=== PATIENT | female | born 1965 | race Caucasian/White ===

== ENCOUNTER → 2017-03-20 | Day surgery (SDC) | payer OTHER ==
[2017-03-14 13:49] VITALS: BMI 54.0
[~2017-03-20] VITALS: Ht 162.6 cm; Wt 142.3 kg
[~2017-03-20] MED LIST: LIDOCAINE HCL 2% 2 ML VIAL (20MG/ML) ONE; NAPR500T3 PO; PROPOFOL IV EMULSION 10 MG/ML 20 ML VIAL IV ONE
[2017-03-20 08:31] VITALS: Ht 162.6 cm; Wt 142.3 kg
--- NOTE | 2017-03-20 09:46 | Endo History and Physical ---
History & Physical Date of Service: Mar 20, 2017. Chief Complaint: SCREENING Referring Physician: ALEXANDRIA FIELD History of Present Illness Surveillance colon polyps Past Surgical History Hx Cardiac Surgery: No Hx Internal Defibrillator: No Hx Pacemaker: No Hx Abdominal Surgery: Yes (TUBAL LIGATION) Hx of Implantable Prosthesis: No Hx Post-Op Nausea and Vomiting: No Hx Cancer Surgery: No Hx Thoracic Surgery: No Hx Orthopedic: Yes (LT/RT CTR) Hx Urinary Tract Surgery: No Family History Colon CA Social History Smoking Status: Never Smoker Hx Substance Use: No Hx Alcohol Use: No Allergies Coded Allergies: Aspirin (Verified Allergy, Severe, EDEMA FACE/LIPS/TONGUE; HIVES, 03/20/17 ) Flu Virus Vaccine (Verified Allergy, Unknown, DIARRHEA AND FEVER, 03/20/17 ) HOSPITALIZED AFTER GIVEN FLU SHOT Diphenhydramine (Verified Adverse Reaction, Unknown, HARD TIME AWAKENING WHEN MEDICATION IS TAKEN, 03/20/17) Current Medications Reported Home Medications Medications Dose Route/Sig Max Daily Dose Days Date Category Naproxen 500 Mg Tab 1 Tab PO BID PRN 03/14/17 Reported Vital Signs Weight (Kilograms): 142.27 Height (Feet): 5 Height (Inches): 4 Date Time Temp Pulse Resp B/P (MAP) Pulse Ox O2 Delivery O2 Flow Rate FiO2 03/20/17 08:43 36.2 69 20 152/87 (108) 96 Room Air Physical Exam General Appearance: no apparent distress Respiratory/Chest: Respiratory effort: no dyspnea Auscultation: breath sounds normal Cardiovascular: Heart Auscultation: RRR Abdomen: Inspection & Palpation: soft Assessment and Plan H/o polyps - cscopy
--- NOTE | 2017-03-20 10:44 | Discharge Instructions ---
Endoscopy Patient Instructions Date / Procedure(s) Performed Mar 20, 2017. Colonoscopy Allergy Information Coded Allergies: Aspirin (Verified Allergy, Severe, EDEMA FACE/LIPS/TONGUE; HIVES, 03/20/17 ) Flu Virus Vaccine (Verified Allergy, Unknown, DIARRHEA AND FEVER, 03/20/17 ) HOSPITALIZED AFTER GIVEN FLU SHOT Diphenhydramine (Verified Adverse Reaction, Unknown, HARD TIME AWAKENING WHEN MEDICATION IS TAKEN, 03/20/17) Discharge Date / Findings Mar 20, 2017. Diminutive polyps, diverticulosis, hemorrhoids Provider Instructions Activity Restrictions - No exercising or heavy lifting for 24 hours. - Do not drink alcohol the day of the procedure. - Do not drive a car or operate machinery until the day after the procedure. - Do not make any important decisions or sign important papers in 24 hours after the procedure. Following Day: - Return to full activity which may include returning to work/school. Diet Start your diet with liquids and light foods (jello, soup, juice, toast). Then eat your usual diet if not nauseated. Treatment For Common After Affects For mild abdominal pain, bloating, or excessive gas: - Rest - Eat lightly - Lie on right side Follow-Up Information Follow-up with ALEXANDRIA FIELD as scheduled Anesthesia Information What You Should Know You have had a procedure that required some medicine to reduce anxiety and discomfort. This treatment is called moderate sedation. After receiving the treatment, you may be sleepy, but you will be able to breathe on your own. The effects of the treatment may last for several hours. Follow these instructions along with Activity/Diet recommendations noted above: * Do NOT do anything where dizziness or clumsiness would be dangerous. * Rest quietly at home today, then you can be up and about tomorrow. * Have a responsible person stay with you the rest of today. * You may have had an I.V. today. If so, you may take the dressing off later today. Recommendations Call your doctor if: * Trouble breathing * Continuous vomiting for more than 24 hours * Temperature above 101 degrees * Severe abdominal pain or bloating * Pain not relieved by pain medicine ordered * There is increased drainage or redness from any incision * A large amount of rectal bleeding greater than 2-3 tablespoons. (If you had a polyp/s removed or have hemorrhoids, a small amount of blood - from the rectum is to be expected.) * You have any unanswered questions or concerns. IN THE EVENT OF A SERIOUS EMERGENCY, GO TO THE NEAREST EMERGENCY ROOM Your discharge instructions were prepared by provider Dyan Monique. Patient Instructions Signature Page Shawna Noe Patient (or Guardian) Signature/Date: I have read and understand the instructions given to me by my caregivers. Caregiver/RN/Doctor Signature/Date: The above-named patient and/or guardian has received patient instructions on this date. + Original Patient Signature Page (only) stays with chart. Please make copy for patient.
--- NOTE | 2017-03-20 10:44 | GI REPORT ---
Procedure Date: 03/20/2017 9:42 AM Procedure: Colonoscopy Indications: High risk colon cancer surveillance: Personal history of colonic polyps Medicines: See the Anesthesia note for documentation of the administered medications Complications: No immediate complications. Estimated Blood Loss: Estimated blood loss: none. Procedure: Pre-Anesthesia Assessment: - ASA Grade Assessment: III - A patient with severe systemic disease. After I obtained informed consent, the scope was passed under direct vision. Throughout the procedure, the patient's blood pressure, pulse, and oxygen saturations were monitored continuously. The scope was introduced through the anus and advanced to the terminal ileum. The colonoscopy was performed without difficulty. The patient tolerated the procedure well. The quality of the bowel preparation was good. Findings: The perianal and digital rectal examinations were normal. Two sessile polyps were found in the ascending colon and in the cecum. The first polyp was 4 mm and was removed with a cold snare. The second polyp was 1 mm and was removed with a forceps. A few small-mouthed diverticula were found in the sigmoid colon. Hemorrhoids on retroflexion. The exam was otherwise without abnormality. Impression: - Two polyps in the ascending colon and in the cecum, removed. Resected and retrieved. - Diverticulosis in the sigmoid colon. - Hemorrhoids. Recommendation: - Discharge patient to home. Repeat exam in 3 years. Dyan Boucher M.D. Dyan Boucher MD 03/20/2017 10:43:42 AM This report has been signed electronically. Note Initiated On: 03/20/2017 9:42 AM I attest to the content of the Intraoperative Record and orders documented therein, exceptions below
[2017-03-20 10:52] VITALS: BP 153/73; PULSE 56; O2SAT 100
--- NOTE | 2017-03-20 10:53 | Anesthesiology Progress Note ---
Anesthesia Post Op Note Date & Time Mar 20, 2017 at 10:52 Vital Signs Pain Intensity: 0 Vital Signs Past 12 Hours Date Time Temp Pulse Resp B/P (MAP) Pulse Ox O2 Delivery O2 Flow Rate FiO2 03/20/17 10:43 54 20 114/82 (93) 100 Room Air 03/20/17 10:32 56 20 126/71 (89) 99 Room Air 03/20/17 08:43 36.2 69 20 152/87 (108) 96 Room Air Notes Mental Status: alert / awake / arousable, participated in evaluation Pt Amnestic to Procedure: Yes Nausea / Vomiting: adequately controlled Pain: adequately controlled Airway Patency, RR, SpO2: stable & adequate BP & HR: stable & adequate Hydration State: stable & adequate Anesthetic Complications: no major complications apparent
== END | disposition home or self-care (01) ==
LOC: C.GI 08:18
PROVIDERS: ATTEND Internal Medicine Gastroenterology
DX: Z12.11 Encounter for screening for malignant neoplasm of colon (principal); D12.2 Benign neoplasm of ascending colon; D12.0 Benign neoplasm of cecum; K57.30 Diverticulosis of large intestine without perforation or abscess without bleeding; K64.8 Other hemorrhoids; Z86.010 Personal history of colon polyps; Z80.0 Family history of malignant neoplasm of digestive organs